=== PATIENT | female | born 2000 | race Caucasian/White ===

== ENCOUNTER → 2020-08-18 | Outpatient (REF) | payer BC | LOC: M LAB REF 17:49 | PROVIDERS: ATTEND Physician Assistant | DX: J03.90 Acute tonsillitis, unspecified (principal) ==

== ENCOUNTER → 2020-08-23 | Outpatient (REF) | payer BC | LOC: M LAB REF 15:24 | PROVIDERS: ATTEND Family Medicine | DX: J03.90 Acute tonsillitis, unspecified (principal) ==

== ENCOUNTER → 2022-12-02 | Outpatient (REF) | payer BC | LOC: M SFHCWAGY 13:13 | PROVIDERS: ATTEND Nurse Practitioner Family | DX: Z12.4 Encounter for screening for malignant neoplasm of cervix (principal); R87.610 Atypical squamous cells of undetermined significance on cytologic smear of cervix (ASC-US) | CPT/HCPCS: 87624; G0123 ==

== ENCOUNTER → 2023-12-29 | Outpatient (REF) | payer BC ==
[2023-12-29 13:54] LABS: Trichomonas vaginalis (AMP) NOT DETECTED (NEGATIVE)
[2023-12-29 14:18] LABS: GC DNA AMPLIFICATION NEGATIVE (NEGATIVE)
== END ==
LOC: M SFHCWAGY 12:17
PROVIDERS: ATTEND Nurse Practitioner Family
DX: Z12.4 Encounter for screening for malignant neoplasm of cervix (principal); R87.610 Atypical squamous cells of undetermined significance on cytologic smear of cervix (ASC-US)

== ENCOUNTER 2024-06-18 00:34 | Emergency (ER) | payer BC ==
[~2024-06-18] VITALS: Ht 165.1 cm; Wt 57.6 kg
[2024-06-18] MEDS ORDERED: MILI1TAB (00:41)
[2024-06-18] MEDS: NS (Normal Saline) 0.9% 1,000 ML IV ONE (04:44)
[2024-06-18 04:54] LABS: BASO % 0.2 % (0.0-1.0); EOS % 0.1 % (0.0-3.0); HEMATOCRIT 43.8 % (36.0-47.0); HEMOGLOBIN 14.7 g/dl (12.0-15.5); LYMPH # 0.2 10^3/uL (1.5-5.0); LYMPH % 1.9 % (24.0-44.0); MEAN CORPUSCULAR HEMOGLOBIN 26.6 pg (27.0-33.0); MEAN CORPUSCULAR HGB CONC 33.6 g/dl (32.0-36.5); MEAN CORPUSCULAR VOLUME 79.2 fl (80.0-96.0); MONO # 0.5 10^3/uL (0.0-0.8); MONO % 3.9 % (2.0-8.0); NEUTROPHILS # 11.9 10^3/uL (1.5-8.5); NEUTROPHILS % 93.6 % (36.0-66.0); PLATELET COUNT, AUTOMATED 209 10^3/uL (150-450); RED BLOOD COUNT 5.53 10^6/uL (4.00-5.40); WHITE BLOOD COUNT 12.7 10^3/uL (4.0-10.0)
[2024-06-18 05:16] LABS: LIPASE 25 U/L (12-53)
[2024-06-18 05:18] LABS: ALBUMIN 4.1 G/DL (3.2-5.2); ALKALINE PHOSPHATASE 70 U/L (35-104); ALT/SGPT 14 U/L (7.0-40); AST/SGOT 15 U/L (<34); BILIRUBIN,TOTAL 0.7 MG/DL (0.3-1.2); BLOOD UREA NITROGEN 17 MG/DL (9-23); CALCIUM LEVEL 9.6 MG/DL (8.5-10.1); CARBON DIOXIDE LEVEL 22 MMOL/L (20-31); CHLORIDE LEVEL 104 MMOL/L (98-107); CREATININE FOR GFR 0.73 MG/DL (0.55-1.30); GLOMERULAR FILTRATION RATE > 60.0 (>60); GLUCOSE, FASTING 143 MG/DL (60-100); MAGNESIUM LEVEL 1.6 MG/DL (1.8-2.4); SODIUM LEVEL 139 MMOL/L (136-145); TOTAL PROTEIN 7.7 G/DL (5.7-8.2)
[2024-06-18 05:40] LABS: HCG, SERUM QUALITATIVE NEGATIVE (NEGATIVE)
[2024-06-18] MEDS: ONDANSETRON 4MG 2ML VIAL IV ONE (06:31)
[2024-06-18] MEDS: ACETAMINOPHEN *IV* 1,000 MG in IV 1 EA IV ONE (06:32)
[2024-06-18] MEDS: KETOROLAC 30 MG/ML 1ML VIAL IV ONE (06:32)
[2024-06-18] MEDS: MAG SULF 1GM/100ML (MAG RUN) 1 GM in IV 1 EA IV ONE (06:58)
[2024-06-18 07:45] VITALS: BP 103/54; TEMP 98.7; O2SAT 96
[2024-06-18] MEDS ORDERED: ONDA-282 PO (07:55)
== END 2024-06-18 08:05 | disposition home or self-care (01) ==
LOC: M ED 00:34
DX: R10.9 Unspecified abdominal pain (principal); R11.2 Nausea with vomiting, unspecified; E83.42 Hypomagnesemia; R00.0 Tachycardia, unspecified; I51.7 Cardiomegaly; Z79.899 Other long term (current) drug therapy; Z79.3 Long term (current) use of hormonal contraceptives
CPT/HCPCS: 80053; 83690; 83735; 84703; 85025; 87486; 87581; 87633; 87798; 93005; 96361; 96365; 96375; 99284; J0131; J1885; J2405; J3475